=== PATIENT | male | born 1930 | race Caucasian/White ===

== ENCOUNTER → 2016-11-09 | Outpatient (CLI) | payer MEDICARE | END | disposition home or self-care (01) | LOC: LAB 07:09 | PROVIDERS: Internal Medicine | DX: R06.02 Shortness of breath (principal); M54.2 Cervicalgia ==

== ENCOUNTER → 2016-11-10 | Outpatient (CLI) | payer MEDICARE | END | disposition home or self-care (01) | LOC: CT 11-09 07:07 | DX: J44.9 Chronic obstructive pulmonary disease, unspecified (principal); N28.1 Cyst of kidney, acquired ==

== ENCOUNTER → 2016-11-18 | Outpatient (CLI) | payer MEDICARE | END | disposition home or self-care (01) | LOC: MRI 02:24 | DX: M48.04 Spinal stenosis, thoracic region (principal); M48.02 Spinal stenosis, cervical region; M77.8 Other enthesopathies, not elsewhere classified; M25.78 Osteophyte, vertebrae ==

== ENCOUNTER 2017-10-12 07:42 | Emergency (ER) | payer MEDICARE ==
[~2017-10-12] VITALS: Ht 180.3 cm; Wt 95.3 kg
[2017-10-12] MEDS ORDERED: QUINAPRIL5 MG PO (07:49)
[2017-10-12] MEDS ORDERED: ZOCOR20 MG PO (07:49)
[2017-10-12] MEDS ORDERED: GLUCOPHAGE500 M1 PO (07:50)
[2017-10-12] MEDS ORDERED: AMLODIPINE BESY10 MG PO (07:50)
[2017-10-12 08:01] LABS: BASO % 0.4 % (0.0-1.0); EOS # 0.1 10*3/uL (0.0-0.4); EOS % 0.6 % (1.0-4.0); HEMATOCRIT 33.7 % (42.0-52.0); HEMOGLOBIN 11.2 g/dl (14.0-18.0); LYMPH # 1.8 10*3/uL (1.3-4.4); LYMPH % 16.4 % (27.0-41.0); MEAN CELL VOLUME 90.6 fl (80.0-94.0); MEAN CORPUSCULAR HGB 30.1 pg (27.0-31.0); MEAN CORPUSCULAR HGB CONC 33.2 g/dl (33.0-37.0); MEAN PLATELET VOLUME 8.8 fl (9.6-12.3); MONO # 0.5 10*3/uL (0.1-1.0); MONO % 4.3 % (3.0-9.0); NEUT # 8.5 10*3/uL (2.3-7.9); PLATELET COUNT AUTOMATED 499 10*3/uL (130-400); RED BLOOD COUNT 3.72 10*6/uL (4.50-5.90); RED CELL DISTRI WIDTH 12.3 % (0-14.5); WHITE BLOOD COUNT 10.9 10*3/uL (4.8-10.8)
[2017-10-12 08:18] LABS: ALBUMIN 2.8 gm/dl (3.1-4.5); ALKALINE PHOSPHATASE 150 U/L (45-117); BUN 18 mg/dl (7-24); CHLORIDE 101 mmol/L (98-107); CREATININE 1.33 mg/dL (0.70-1.30); LIPASE 188 U/L (73-393); POTASSIUM 4.4 mmol/L (3.5-5.1); SGOT/AST 16 IU/L (3-35); SGPT/ALT 34 U/L (12-78); SODIUM 135 mmol/L (136-145); TOTAL PROTEIN 7.4 gm/dL (6.4-8.2)
[2017-10-12 08:22] LABS: BILIRUBIN NEGATIVE (NEGATIVE); BLOOD NEGATIVE (NEGATIVE); CLARITY CLEAR (CLEAR); COLOR YELLOW (YELLOW); GLUCOSE 3+ (NEGATIVE); KETONE NEGATIVE (NEGATIVE); LEUKO ESTERASE NEGATIVE (NEGATIVE); NITRITE NEGATIVE (NEGATIVE); PH 5.5 (5.0-9.0); SPECIFIC GRAVITY 1.025 (1.005-1.030)
[2017-10-12 08:34] LABS: MUCOUS 1+
[2017-10-12 08:35] LABS: EPITHELIAL CELLS 0-2; RBC 0-2 rbc/hpf (0-2)
[2017-10-12 09:07] VITALS: BP 105/55
[2017-10-12] MEDS ORDERED: MIRALAX POWDER17 G1 PO (10:01)
== END 2017-10-12 10:53 | disposition home or self-care (01) ==
LOC: ED 07:42
PROVIDERS: Emergency Medicine
DX: K59.00 Constipation, unspecified (principal); M54.5 Low back pain; R10.32 Left lower quadrant pain; Z98.890 Other specified postprocedural states; Z79.899 Other long term (current) drug therapy

== ENCOUNTER → 2017-10-20 | Outpatient (CLI) | payer MEDICARE ==
[~2017-10-20] MED LIST: AMLODIPINE BESY10 MG PO; GLUCOPHAGE500 M1 PO; MIRALAX POWDER17 G1 PO; QUINAPRIL5 MG PO; ZOCOR20 MG PO
== END | disposition home or self-care (01) ==
LOC: US 02:27
DX: N28.1 Cyst of kidney, acquired (principal); N28.89 Other specified disorders of kidney and ureter

== ENCOUNTER → 2019-04-13 | Outpatient (CLI) | payer MEDICARE | END | disposition home or self-care (01) | LOC: CARD 04-12 11:00 | DX: I51.7 Cardiomegaly (principal); R06.02 Shortness of breath ==